=== PATIENT | female | born 1970 | race Caucasian/White ===

== ENCOUNTER 2021-11-23 09:11 | Emergency (ER) | payer OTHER, SELFPAY ==
--- NOTE | 2021-11-23 | ECG_ITS ---
Test Reason : chest pressure Blood Pressure : / mmHG Vent. Rate : 104 BPM Atrial Rate : 104 BPM P-R Int : 126 ms QRS Dur : 078 ms QT Int : 328 ms P-R-T Axes : 024 043 -11 degrees QTc Int : 431 ms Sinus tachycardia Nonspecific T wave abnormality Abnormal ECG No previous ECGs available Referred By: Generic ED Physician Electronically Signed By:JEFE MOYER MD
--- NOTE | ~2021-11-23 | XR_ITS ---
EXAMINATION: XR CHEST CLINICAL INFORMATION: Shortness of breath and mild chest COMPARISON: None TECHNIQUE: Frontal view of the chest was obtained. FINDINGS: There is left basilar atelectasis present. No other Significant abnormality is noted involving the heart, lungs, mediastinum, bony thorax or soft tissues. XR/XR chest 1V IMPRESSION: Left basilar atelectasis
--- NOTE | ~2021-11-23 | CT_ITS ---
EXAMINATION: CT ANGIOGRAM OF THE CHEST WITH AND WITHOUT CONTRAST (CT PULMONARY ANGIOGRAM FOR PE) CLINICAL INFORMATION: Reason for Exam chest tightness, weakness COMPARISON: Chest radiograph earlier today TECHNIQUE: Prior to contrast administration, noncontrast localization images were obtained. Subsequently, multidetector volumetric imaging was performed from the thoracic inlet to below the diaphragms following the administration of 65 mL Omnipaque 350 intravenous contrast. No contrast reaction reported Sagittal, coronal, and MIP oblique sagittal reformatted images were obtained on the CT workstation, uploaded to PACS, and reviewed. This CT examination was performed using dose optimization techniques as appropriate, variously including the following: *Automated exposure control *Adjustment of mA and/or kV according to patient size (this includes techniques or standardized protocols for targeted exams where dose is matched to indication/reason for exam; i.e. extremities or head) *Use of iterative reconstruction technique Total exam dose-length product 218 mGy-cm FINDINGS: QUALITY OF STUDY/CONTRAST BOLUS: Satisfactory. PULMONARY ARTERIES: No central or segmental pulmonary emboli. THORACIC AORTA: No aneurysm or dissection. LUNG: No focal consolidation, nodules or masses. Some mild left basilar atelectasis is seen similar to the chest radiograph. PLEURA: No pleural effusion or pneumothorax. MEDIASTINUM: Normal heart size. No pericardial effusion. No hilar or mediastinal lymphadenopathy. No evidence of septal bowing or right heart strain. CHEST WALL/AXILLA: No axillary or internal mammary lymphadenopathy. OSSEOUS STRUCTURES: No acute or suspicious osseous abnormality. UPPER ABDOMEN: Unremarkable. No reflux of contrast into the hepatic veins to suggest elevated right heart pressures. CT/CT angio chest PE protocol IMPRESSION: No evidence of pulmonary emboli VTE: negative
[2021-11-23 09:29] VITALS: BP 124/56; PULSE 102; RESP 16; TEMP 37.4; O2SAT 95; BMI 25.7
[2021-11-23 10:15] VITALS: BP 138/66; PULSE 96; RESP 20; TEMP 37; O2SAT 96
[2021-11-23 10:34] LABS: MANUAL DIFF FLAG NO
[2021-11-23 10:39] LABS: Basophils Percent Auto 0.5 % (0-2); Eosinophils Percent Auto 0.5 % (0-4); Hematocrit 43.8 % (37.0-47.0); Hemoglobin 14.4 g/dl (12.0-16.0); Imm Gran Abs Auto 0.06 X10*3/uL (0.00-0.03); Imm Gran Pct Auto 0.7 % (0.0-0.4); Lymphocytes Absolute Auto 0.7 X10*3/uL (1.2-4.9); Lymphocytes Percent Auto 8.4 % (20-40); Mean Corpuscular HGB Conc 32.9 g/dl (31.0-35.0); Mean Corpuscular Hemoglobin 28.8 pg (27.0-33.0); Mean Corpuscular Volume 87.6 fL (80.0-98.0); Mean Platelet Volume 9.5 fL (9.4-12.3); Monocytes Absolute Auto 0.3 X10*3/uL (0.1-1.2); Monocytes Percent Auto 4.1 % (2-11); Neutrophils Absolute Auto 7.1 x10*3/uL (2.0-8.3); Neutrophils Percent Auto 85.8 % (45-73); Platelet Count 260 X10*3/uL (160-400); Red Cell Distribution Width 13.5 % (11.0-16.0); White Blood Count 8.2 X10*3/uL (4.8-10.8)
--- NOTE | 2021-11-23 10:40 | PC.NURSE ---
pt alert and oriented, skin pwd, respirations even and unlabored, pt reports having a headache, but mostly on the base of the head/neck area pt also states that the headache occurs mostly when she turns her head side to side, no vision disturbances no hx of headaches, feels generally weak, all neuro intact, no visual hand drift, moving all extremities, does report some dizziness and nausea and chest tightness, vs stable
[2021-11-23 10:49] LABS: Alanine Aminotransferase 47 U/L (0-31); Albumin Level 4.3 g/dL (3.5-5.0); Alkaline Phosphatase 123 U/L (39-117); Anion Gap 14 (12-20); Aspartate Amino Transferase 47 U/L (5-31); Bilirubin Total 0.7 mg/dL (0.0-1.0); Blood Urea Nitrogen 13 mg/dL (9-16); Calcium 9.7 mg/dL (8.4-10.2); Carbon Dioxide 25 mmol/L (22-29); Chloride 101 mmol/L (96-108); Estimated Glomerular Filt Rate > 60; Glucose Random 103 mg/dL (60-115); INTERNATIONAL NORM RATIO 1.1 (0.9-1.1); Potassium 4.4 mmol/L (3.3-5.1); Prothrombin Time 12.3 SEC (9.9-13.0); Sodium 136 mmol/L (135-145)
[2021-11-23 10:51] LABS: D Dimer High Sensitivity 1791 NG/ML
[2021-11-23 10:53] LABS: Troponin-I High Sensitivity < 3.5 ng/L (<3.5-17.0)
--- NOTE | 2021-11-23 11:06 | ED.GENADULT ---
HPI - General Adult General Chief complaint: General Medical Stated complaint: chest pain, weakness , dizziness Time Seen by Provider: 11/23/21 09:36 Source: patient Mode of arrival: ambulatory History of Present Illness HPI narrative: 51-year-old female who presents without any significant past medical history, states she does not drink alcohol regularly and last had a drink on Saturday. She states that 2 days ago she began having headache with neck discomfort denies any recent falls, MVAs and then over the past 24 hours states that she began developing chest tightness, nausea, weakness. Otherwise, she denies any cigarette smoking/illicit drug use/marijuana use. Her history is significant for [place] multiple [place] in [place] Related Data Previous Rx's Medication Instructions Recorded doxycycline hyclate 100 mg capsule 100 mg PO BID 10 days #20 caps 11/23/21 Allergies Allergy/AdvReac Type Severity Reaction Status Date / Time No Known Allergies Allergy Verified 11/23/21 09:28 Review of Systems Review of Systems: Pertinent positives and negatives as stated in HPI 10 point review of systems is otherwise negative. PMFSH Past Medical History Source: nursing notes reviewed Medical History No known health problems Social History Social History Alcohol intake: current Alcohol intake frequency: a few times a week Patient Tobacco Use Status: Never used Tobacco Use of substances other than those prescribed or required for medical reasons: No Advance Directives: No Advance Directives Information Provided: No Physical Exam ED Vital Signs: Vital Signs - 24 hr 11/23/21 09:29 11/23/21 10:15 11/23/21 12:51 Temperature 99.4 F 98.6 F Pulse Rate 102 H 96 90 Respiratory Rate 16 20 18 Blood Pressure 124/56 L 138/66 136/53 L Pulse Oximetry 95 96 99 Oxygen Delivery Method Room Air Room Air Room Air BMI result Body Mass Index 25.7 VITAL SIGNS: Reviewed. GENERAL: Well developed, well nourished, in no acute distress. HEAD: Normocephalic/atraumatic EYES: PERRLA, EOMI intact without pain, no nystagmus EARS: Ext canals without abnormality, TMs non-bulging and non-erythematous NOSE: Nares patent bilateral OROPHARYNX: no oral lesions noted, posterior pharynx clear and non-erythematous without noted tonsillar enlargement/erythema/exudates NECK: Supple, no adenopathy, no midline cervical spine tenderness/step-off, no meningeal signs LUNGS: Normal breath sounds. No adventitious sounds or accessory muscle use. SpO2<95> CARDIOVASCULAR: Regular rate and rhythm without noted murmurs, no JVD or lower extremity edema. ABDOMEN: Soft, non-tender, non-distended with bowel sounds. MUSCULOSKELETAL: No tenderness, deformities, or effusions noted on gross inspection. EXTREMITIES: No cyanosis, clubbing or edema. SKIN: Inspection of the skin reveals no rashes NEUROLOGIC: Alert and oriented x 4. Strength and sensation to light touch were grossly intact x 4. PSYCH: Normal affect, pressured speech Course Course Course Narrative: 51-year-old female with history and clinical presentation possible disseminated Lyme, PE, musculoskeletal pain. Patient treated with combination analgesics on re-evaluation she has had complete resolution of her symptoms. Review of all investigations is otherwise negative for acute findings to include no PE. There are concerns that this may be an early disseminated Lyme disease given patient's frequent [place] and will empirically treat her with doxycycline and she understands that she is to follow-up with primary care provider to follow-up on the Lyme panel results. Medical Decision Making Lab Data Result diagrams: 11/23/21 10:28 11/23/21 10:28 Labs: Lab Results 11/23/21 11/23/21 11/23/21 Range/Units 10:28 10:28 10:28 WBC 8.2 (4.8-10.8) X10*3/uL RBC 5.00 (4.20-5.50) X10*6/uL Hgb 14.4 (12.0-16.0) g/dl Hct 43.8 (37.0-47.0) % MCV 87.6 (80.0-98.0) fL MCH 28.8 (27.0-33.0) pg MCHC 32.9 (31.0-35.0) g/dl RDW 13.5 (11.0-16.0) % Plt Count 260 (160-400) X10*3/uL MPV 9.5 (9.4-12.3) fL Immature Gran % (Auto) 0.7 H (0.0-0.4) % Neut % (Auto) 85.8 H (45-73) % Lymph % (Auto) 8.4 L (20-40) % [place] % (Auto) 4.1 (2-11) % Eos % (Auto) 0.5 (0-4) % Baso % (Auto) 0.5 (0-2) % Lymph # (Auto) 0.7 L (1.2-4.9) X10*3/uL [place] # (Auto) 0.3 (0.1-1.2) X10*3/uL Eos # (Auto) 0.0 (0.0-0.4) X10*3/uL Baso # (Auto) 0.0 (0.0-0.2) X10*3/uL Abs Immat Gran (auto) 0.06 H (0.00-0.03) X10*3/uL Absolute Neuts (auto) 7.1 (2.0-8.3) x10*3/uL Absolute Nucleated RBC 0.000 (0.0-0.012) X10*3/uL Nucleated RBC % (auto) 0.0 (0.0-0.2) /100WBC PT 12.3 (9.9-13.0) SEC INR 1.1 (0.9-1.1) D-Dimer High Sensitivty 1791 NG/ML Sodium 136 (135-145) mmol/L Potassium 4.4 (3.3-5.1) mmol/L Chloride 101 (96-108) mmol/L Carbon Dioxide 25 (22-29) mmol/L Anion Gap 14 (12-20) BUN 13 (9-16) mg/dL Creatinine 0.75 (0.5-1.4) mg/dL Estim Creat Clear Calc 80.0 Estimated GFR > 60 Random Glucose 103 (60-115) mg/dL Calcium 9.7 (8.4-10.2) mg/dL Total Bilirubin 0.7 (0.0-1.0) mg/dL AST 47 H (5-31) U/L ALT 47 H (0-31) U/L Alkaline Phosphatase 123 H (39-117) U/L Troponin I High Sens (<3.5-17.0) ng/L Total Protein 8.0 (6.5-8.0) g/dL Albumin 4.3 (3.5-5.0) g/dL Lipase 21 (8-78) U/L 11/23/ Range/Units 10:28 WBC (4.8-10.8) X10*3/uL RBC (4.20-5.50) X10*6/uL Hgb (12.0-16.0) g/dl Hct (37.0-47.0) % MCV (80.0-98.0) fL MCH (27.0-33.0) pg MCHC (31.0-35.0) g/dl RDW (11.0-16.0) % Plt Count (160-400) X10*3/uL MPV (9.4-12.3) fL Immature Gran % (Auto) (0.0-0.4) % Neut % (Auto) (45-73) % Lymph % (Auto) (20-40) % [place] % (Auto) (2-11) % Eos % (Auto) (0-4) % Baso % (Auto) (0-2) % Lymph # (Auto) (1.2-4.9) X10*3/uL [place] # (Auto) (0.1-1.2) X10*3/uL Eos # (Auto) (0.0-0.4) X10*3/uL Baso # (Auto) (0.0-0.2) X10*3/uL Abs Immat Gran (auto) (0.00-0.03) X10*3/uL Absolute Neuts (auto) (2.0-8.3) x10*3/uL Absolute Nucleated RBC (0.0-0.012) X10*3/uL Nucleated RBC % (auto) (0.0-0.2) /100WBC PT (9.9-13.0) SEC INR (0.9-1.1) D-Dimer High Sensitivty NG/ML Sodium (135-145) mmol/L Potassium (3.3-5.1) mmol/L Chloride (96-108) mmol/L Carbon Dioxide (22-29) mmol/L Anion Gap (12-20) BUN (9-16) mg/dL Creatinine (0.5-1.4) mg/dL Estim Creat Clear Calc Estimated GFR Random Glucose (60-115) mg/dL Calcium (8.4-10.2) mg/dL Total Bilirubin (0.0-1.0) mg/dL AST (5-31) U/L ALT (0-31) U/L Alkaline Phosphatase (39-117) U/L Troponin I High Sens < 3.5 (<3.5-17.0) ng/L Total Protein (6.5-8.0) g/dL Albumin (3.5-5.0) g/dL Lipase (8-78) U/L ECG Data Attestation: I personally reviewed and interpreted this ECG as follows: Prior ECG tracings: not available for review Interpretation: Sinus tachycardia, HR-104, no STEMI, but there are noted T-wave inversions in V5/V6, also noted SQT 3 in lead 3. Discharge Plan Discharge Clinical Impression: Viral syndrome Patient Disposition: Home, Self-Care Instructions: Lyme Disease (ED), Tick Bite (ED), Viral Syndrome (ED) Additional Instructions: 1. Resume all home medications. 2. Complete the entire course of doxycycline as ordered, however you should follow-up with your physician prior to running out of this medication to follow-up on the Lyme panel. Return to the ER for worsening symptoms. Prescriptions: New doxycycline hyclate 100 mg capsule 100 mg PO BID 10 Days Qty: 20 0RF Referrals: Shine Stern MD [Primary Care Provider] - (Please follow-up Lyme panel) Stand Alone Forms: Work/School Release
[2021-11-23 11:09] LABS: Lipase 21 U/L (8-78)
[2021-11-23] MEDS: iohexoL 350 MG/ML 100 ML INFUS..BTL IV (11:15)
[2021-11-23] MEDS: 0.9 % Sodium Chloride 1,000 ML 999 ML IV (11:43)
[2021-11-23] MEDS: Acetaminophen 325 MG TABLET 975 MG PO (12:48)
[2021-11-23] MEDS: Ketorolac Tromethamine 30 MG/ML VIAL 15 MG IVPUSH (12:49)
[2021-11-23 12:51] VITALS: BP 136/53; PULSE 90; RESP 18; O2SAT 99
[2021-11-23 14:08] VITALS: BP 124/56; PULSE 87; RESP 16; O2SAT 97
[2021-11-30 02:26] LABS: Lyme Abs Screen <0.90 index
== END 2021-11-23 14:24 | disposition home or self-care (01) ==
PROVIDERS: Emergency Provider Student in an Organized Health Care Education/Training Program; PCP Internal Medicine
DX: B34.9 Viral infection, unspecified (principal)
CPT/HCPCS: 36415; 71045; 71275; 80053; 83690; 84484; 85025; 85379; 85610; 86617; 86618; 93005; 96361; 96374; 99284; J1885; Q9967